=== PATIENT | female | born 2000 | race Caucasian/White ===

== ENCOUNTER 2025-10-22 19:51 | Emergency (ER) | payer BC ==
[~2025-10-22] VITALS: Ht 167.6 cm; Wt 81.2 kg
[2025-10-22] MEDS ORDERED: METOCLOPRAMIDE HCL 10 MG/2 ML VIAL ONE (22:34)
[2025-10-22] MEDS ORDERED: dexaMETHasone SOD PHOSPHATE 1 ML ONE (22:34)
[2025-10-22] MEDS: IV NS 0.9% 1,000 ML BAG IV ONE (22:44)
[2025-10-22] MEDS: METOCLOPRAMIDE HCL 10 MG/2 ML VIAL IV ONE ×2 (22:44)
[2025-10-22] MEDS: dexaMETHasone SOD PHOSPHATE 10 MG/ML VIAL IV ONE (22:44)
[2025-10-22] MEDS ORDERED: MORPHINE SULFATE INJ 4 MG/ML DISP.SYRIN ONE (22:45)
[2025-10-22] MEDS: MORPHINE SULFATE INJ 4 MG/ML DISP.SYRIN IV ONE (22:51)
[2025-10-22 23:15] LABS: PLATELET COUNT (AUTO) 367 K/uL (150-450); RED BLOOD CELL COUNT(AUTO) 4.52 MIL/uL (4.0-5.2); RED CELL DISTRIBUTION WIDTH 12.4 % (11.5-15.0); WHITE BLOOD COUNT (AUTO) 20.7 K/uL (4.3-11.0)
[2025-10-22 23:23] LABS: CALCIUM, SERUM 8.8 mg/dL (8.5-10.1); CREATININE 0.9 mg/dL (0.6-1.3); SODIUM SERUM 137.0 mmol/L (136-145); UREA NITROGEN, BLOOD 10.0 mg/dL (7-18)
[2025-10-22] MEDS ORDERED: AMOX/CLAVULANATE 875 MG TABLET PO ONE (23:30)
[2025-10-23] MEDS ORDERED: ONDANSETRON HCL/PF 4 MG/2 ML VIAL ONE ×2 (00:04→02:34)
[2025-10-23] MEDS: ONDANSETRON HCL/PF 4 MG/2 ML VIAL IV ONE (00:05)
[2025-10-23] MEDS: IV NS 0.9% 1,000 ML BAG IV ONE ×2 (00:08→02:39)
[2025-10-23] MEDS: MORPHINE SULFATE INJ 2 MG/ML DISP.SYRIN IV ONE (00:09)
[2025-10-23] MEDS ORDERED: MORPHINE SULFATE INJ 2 MG/ML DISP.SYRIN ONE (00:09)
[2025-10-23] MEDS ORDERED: MAG HYDROX/AL HYDROX/SIMETH 30 ML UDC ONE (02:13)
[2025-10-23] MEDS: MAG HYDROX/AL HYDROX/SIMETH 30 ML UDC PO ONE (02:16)
[2025-10-23] MEDS: ONDANSETRON HCL/PF - ER 4 MG/2 ML VIAL IV ONE (02:39)
[2025-10-23] MEDS: FAMOTIDINE/PF INJ 20 MG/2 ML VIAL IV ONE (02:39)
[2025-10-23] MEDS: PANTOPRAZOLE 40 MG VIAL IV ONE (02:39)
[2025-10-23] MEDS ORDERED: METO-295 PO (04:26)
[2025-10-23] MEDS ORDERED: PANT40TA49 PO (04:26)
[2025-10-23] MEDS ORDERED: FAMO20TA80 PO (04:26)
[2025-10-23 04:30] VITALS: BP 113/86; TEMP 98.5; O2SAT 96
== END 2025-10-23 04:30 | disposition home or self-care (01) ==
LOC: ER 20:07
DX: T88.59XA Other complications of anesthesia, initial encounter (principal); K92.0 Hematemesis
CPT/HCPCS: 99284; 96374; 96375 ×2; 96361 ×2; 85025; 80048; 36415; 96376; J1100; J2270 ×2; J2765; J7030 ×3; J1308; J2405 ×3; J2470